=== PATIENT | female | born 1990 | race Caucasian/White ===

== ENCOUNTER 2017-05-20 07:04 | Day surgery (SDC) | payer MEDICAID ==
[~2017-05-20] VITALS: Ht 157.5 cm; Wt 81.6 kg
[2017-05-20] MEDS ORDERED: MIDAZOLAM 2 MG/2 ML VIAL ONE (09:02)
[2017-05-20] MEDS ORDERED: fentaNYL 0.05 MG/ML VIAL ONE (09:02)
[2017-05-20] MEDS ORDERED: LEVO0.133 PO (09:57)
[2017-05-20] MEDS ORDERED: INSULIN (09:57)
[2017-05-20] MEDS ORDERED: METO-485 PO (09:57)
[2017-05-20] MEDS ORDERED: LORA-476 PO (09:57)
[2017-05-20] MEDS ORDERED: MIDAZOLAM 2 MG/2 ML VIAL IVP ONE (10:35)
== END 2017-05-20 10:11 | disposition home or self-care (01) ==
LOC: MDS 07:04 → MMU 07:06 → MDS 10:11
PROVIDERS: ATTEND Internal Medicine Gastroenterology
DX: R11.2 Nausea with vomiting, unspecified (principal); K29.70 Gastritis, unspecified, without bleeding; K31.84 Gastroparesis; Z79.899 Other long term (current) drug therapy; Z98.890 Other specified postprocedural states
CPT/HCPCS: 36415; 81025; 82948; 86677; J2250; J3010; J7030